=== PATIENT | male | born 1960 | race Caucasian/White ===

== ENCOUNTER 2020-10-30 15:09 | Inpatient (IN) | payer MEDICAID ==
[~2020-10-30] VITALS: Ht 185.4 cm; Wt 72.2 kg
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
[2020-10-30] MEDS ORDERED: DILTIAZEM 5 MG/ML, 5ML IV ONE ×2 (15:30→16:30)
[2020-10-30] MEDS ORDERED: SODIUM CHLORIDE FLUSH 10ML SYR IVF ONE (15:30)
[2020-10-30] MEDS ORDERED: PLEASE ENTER HEIGHT AND WEIGHT MC SCH (15:30)
[2020-10-30] MEDS ORDERED: PLEASE ENTER ALLERGIES MC SCH (15:30)
[2020-10-30] MEDS ORDERED: DILTIAZEM 5 MG/ML, 5ML ONE (15:46)
--- NOTE | 2020-10-30 15:47 | NUR ---
XRAY BEDSIDE. SENT MEDICATION REQUEST TO PHARMACY FOR BOTH DRIP AND PUSH.
[2020-10-30] MEDS ORDERED: DILTIAZEM 125 MG in SODIUM CHLORIDE 0.9% 100 ML IV SCH ×2 (16:00)
[2020-10-30 16:07] LABS: BASOPHILS % (AUTO) 1 % (0-1); EOSINOPHILS % (AUTO) 1 % (1-7); LYMPHOCYTES % (AUTO) 13 % (22-44); MEAN CORPUSCULAR HEMOGLOBIN 31.9 pg (27.5-34.5); MEAN CORPUSCULAR HGB CONC 32.6 g/dL (33.2-36.2); MEAN PLATELET VOLUME 6.8 fL (7.4-10.4); MONOCYTES % (AUTO) 9 % (2-9); NEUTROPHILS % (AUTO) 76 % (42-75); PLATELET COUNT 527 x10^3/uL (130-400); RED BLOOD COUNT 3.78 x10^6/uL (4.38-5.82); RED CELL DISTRIBUTION WIDTH 19.9 % (9.4-14.8)
[2020-10-30 16:09] LABS: MD NO
--- NOTE | 2020-10-30 16:09 | NUR ---
CALLED [phone] TO GIVE REPORT, LEFT ON HOLD 3 MINUTES
[2020-10-30 16:18] LABS: ALANINE AMINOTRANSFERASE 22 U/L (12-78); ALBUMIN 3.4 g/dL (3.4-5.0); ANION GAP 8 mmol/L (5-15); CALCIUM 8.3 mg/dL (8.5-10.1); CHLORIDE 106 mmol/L (98-107); CREATININE 0.53 mg/dL (0.7-1.3)
--- NOTE | 2020-10-30 16:19 | NUR ---
MED STARTED, SEE MAR.
[2020-10-30 16:28] LABS: ALKALINE PHOSPHATASE 64 U/L (45-117); BILIRUBIN,TOTAL 0.3 mg/dL (0.2-1.0); TOTAL PROTEIN 6.5 g/dL (6.4-8.2); TROPONIN I < 0.015 ng/mL (0.000-0.045)
[2020-10-30] MEDS ORDERED: ONDANSETRON 2MG/ML, 2ML IVPush PRN (16:30)
[2020-10-30] MEDS ORDERED: LORazepam 0.5MG TABLET PO PRN (16:30)
[2020-10-30] MEDS ORDERED: LACTATED RINGERS 1,000 ML IV SCH (16:30)
[2020-10-30] MEDS ORDERED: TEMAZEPAM 15 MG CAPSULE PO PRN (16:30)
[2020-10-30] MEDS ORDERED: ONDANSETRON ODT 4 MG PO PRN (16:30)
[2020-10-30] MEDS ORDERED: ACETAMINOPHEN 325 MG TABLET PO PRN (16:30)
--- NOTE | 2020-10-30 16:51 | NUR ---
SBAR REPORT GIVEN TO SONALI, ANSWERED QUESTIONS.
[2020-10-30] MEDS ORDERED: DILT-86 PO (17:38)
[2020-10-30] MEDS ORDERED: OMEP20CA20 PO (17:38)
[2020-10-30] MEDS ORDERED: HYDR-3248 PO (17:38)
[2020-10-30] MEDS ORDERED: HYDROcodone/APAP 10/325 MG TABLET PO PRN (18:00)
[2020-10-30] MEDS ORDERED: OXYC1TAB18 PO (18:26)
[2020-10-30 18:41] LABS: INTERNATIONAL NORMALIZED RATIO 0.98 (0.93-1.1); PROTHROMBIN TIME 10.5 Seconds (9.6-11.5)
[2020-10-30 18:52] VITALS: BP 121/83
[2020-10-30 20:05] LABS: AMPHETAMINE SCREEN, URINE Negative (Negative); BARBITURATE SCREEN, URINE Negative (Negative); BENZODIAZEPINE SCREEN, URINE Negative (Negative); CANNABINOID SCREEN, URINE Positive (Negative); COCAINE SCREEN, URINE Negative (Negative); METHADONE SCREEN, URINE Negative (Negative); OPIATE SCREEN, URINE Negative (Negative)
[2020-10-30] MEDS: FAMOTIDINE 20 MG TABLET PO SCH (20:35)
[2020-10-30] MEDS ORDERED: DIGOXIN 0.25 MG/ML, 2ML IVPush ONE (21:00)
[2020-10-30] MEDS: DILTIAZEM 125 MG in SODIUM CHLORIDE 0.9% 100 ML IV SCH (21:45)
[2020-10-30] MEDS: OXYcodone/APAP 10/325MG TABLET PO PRN (22:10)
[2020-10-30 23:41] VITALS: BP 117/52
[2020-10-31 05:01] LABS: BASOPHILS % (AUTO) 1 % (0-1); EOSINOPHILS % (AUTO) 3 % (1-7); LYMPHOCYTES % (AUTO) 16 % (22-44); MEAN CORPUSCULAR HGB CONC 32.7 g/dL (33.2-36.2); MEAN PLATELET VOLUME 6.9 fL (7.4-10.4); MONOCYTES % (AUTO) 12 % (2-9); NEUTROPHILS % (AUTO) 69 % (42-75); PLATELET COUNT 424 x10^3/uL (130-400); RED BLOOD COUNT 3.25 x10^6/uL (4.38-5.82); RED CELL DISTRIBUTION WIDTH 20.3 % (9.4-14.8)
[2020-10-31 05:10] LABS: ANION GAP 4 mmol/L (5-15); CHLORIDE 108 mmol/L (98-107); CREATININE 0.51 mg/dL (0.7-1.3); MD NO
[2020-10-31] MEDS: DILTIAZEM 125 MG in SODIUM CHLORIDE 0.9% 100 ML IV SCH (06:29)
[2020-10-31 07:56] VITALS: BP 146/76
[2020-10-31] MEDS: FAMOTIDINE 20 MG TABLET PO SCH ×2 (08:42→08:44)
[2020-10-31] MEDS: DILTIAZEM 60 MG TABLET PO SCH ×3 (08:42→08:55)
[2020-10-31] MEDS: OXYcodone/APAP 10/325MG TABLET PO PRN (08:43)
[2020-10-31] MEDS ORDERED: DILTIAZEM CD 180 MG CAP.ER.24H PO ONE (09:00)
[2020-10-31] MEDS ORDERED: NICOTINE 14MG/24 HR PATCH.TD24 ONE (09:38)
[2020-10-31] MEDS ORDERED: NICOTINE 14MG/24 HR PATCH.TD24 TD ONE (10:00)
[2020-10-31] MEDS ORDERED: DILTIAZEM 125 MG in SODIUM CHLORIDE 0.9% 100 ML IV SCH (16:00)
== END 2020-10-31 11:29 | disposition left against medical advice (07) | DRG 309 ==
LOC: ED 15:25 → 5SO 15:26 → SUATTDRO 15:39 → ED 16:05
PROVIDERS: ADMIT Internal Medicine; ATTEND Family Medicine
DX: I48.92 Unspecified atrial flutter (principal); D68.69 Other thrombophilia; F10.10 Alcohol abuse, uncomplicated; I10 Essential (primary) hypertension; I48.91 Unspecified atrial fibrillation; M19.90 Unspecified osteoarthritis, unspecified site; J44.9 Chronic obstructive pulmonary disease, unspecified; Z53.29 Procedure and treatment not carried out because of patient's decision for other reasons; Z87.11 Personal history of peptic ulcer disease; Z91.81 History of falling
CPT/HCPCS: 36415; 71045; 80048; 80053; 80307; 80320; 83735; 84443; 84484; 85025; 85610; 93005; 96374; G0378; G0480; J1160; J7120